=== PATIENT | female | born 1975 | race Caucasian/White ===

== ENCOUNTER 2019-11-06 02:10 | Inpatient (IN) | payer OTHER ==
[2019-11-06] MEDS ORDERED: AMPICILLIN SODIUM 2 GM VIAL ONE (03:37)
[2019-11-06] MEDS ORDERED: AMPICILLIN - 2 GM in SODIUM CHLORIDE 100 ML IVPB ONE (03:43)
[2019-11-06] MEDS ORDERED: DEXTROSE 5%-LACTATED RINGERS 1,000 ML IV SCH (03:45)
--- NOTE | 2019-11-06 03:49 | HP ---
Past Medical History - Primary Care Physician PCP:: Ricardo Radford - Admission Chief Complaint: 43 yo EDC 11/07/2019 EGA 39.6 wks presents to c/o leaking AF and UC. H/O x 3 and c/s x 1 for arrest dilatation, failed induction. Pt desires History of Present Illness: 43 yo EDC 11/07/2019 EGA 39.6 wks presents to c/o leaking AF and UC. H/O x 3 and c/s x 1 for arrest dilatation, failed induction Pt desires AMA - genetic consultation declined History Source: Patient Limitations to Obtaining History: No Limitations - Past Medical History ...: 6 ...Para: 4 ...Induced : 1 ...LMP: 02/01/19 ... Weeks Gestation by Dates: 39 ...EDC by Dates: 11/07/19 ...EDC by Sono: 11/07/19 - Past Surgical History Past Surgical History: Yes: Hx Myomectomy: No Hx Transabdominal Cerclage: No - Smoking History Smoking history: Never smoked Have you smoked in the past 12 months: No - Alcohol/Substance Use Hx Alcohol Use: No History of Substance Use: reports: None - Social History Usual Living Arrangement: Yes: With Spouse, With Significant Other Do you think of yourself as: Straight/Heterosexual History of Recent Travel: No Home Medications - Allergies Allergies/Adverse Reactions: Allergies Allergy/AdvReac Type Severity Reaction Status Date / Time No Known Allergies Allergy Verified 11/06/19 03:28 Family Medical History Family History: Unremarkable Review of Systems - Review of Systems Constitutional: reports: No Symptoms Eyes: reports: No Symptoms HENT: reports: No Symptoms Neck: reports: No Symptoms Cardiovascular: reports: No Symptoms Respiratory: reports: No Symptoms Gastrointestinal: reports: No Symptoms Genitourinary: reports: Pain Breasts: reports: No Symptoms Reported Musculoskeletal: reports: No Symptoms Integumentary: reports: No Symptoms Neurological: reports: No Symptoms Endocrine: reports: No Symptoms Hematology/Lymphatic: reports: No Symptoms Psychiatric: reports: No Symptoms Physical Exam - Maternity Constitutional: Yes: Well Nourished, No Distress Eyes: Yes: WNL HENT: Yes: WNL Neck: Yes: WNL Cardiovascular: Yes: WNL Breast(s): Yes: WNL - Abdominal Exam/OB Fundal Height: 40 Number of Fetuses: Single Presentation: Vertex Contractions: Yes Regularity: Regular Intensity: Mild Monitor Mode: External Heart Rate Location: [facility] Category: I Accelerations: Uniform Decelerations: None - Vaginal Exam/OB Vaginal Bleeding: No Dilatation (cm): 4 Effacement (%): 100 Amniotic Membrane Status: Bulging Nitrazine Test: Negative Presentation: Vertex/Position Station: -2 - Physical Exam Musculoskeletal: Yes: WNL Extremities: Yes: WNL Edema: No Integumentary: Yes: WNL Deep Tendon Reflex Grade: Normal +2 ...Motor Strength: WNL Psychiatric: Yes: WNL Hemorrhage Risk Assessment - Risk Factors Medium Risk Factors: Yes: Prior , uterine surgery,or multiple laparotomies Risk Score: 1 Risk Level: Medium Risk Problem List - Problems (1) AMA (advanced maternal age) multigravida 35+ Code(s): O09.529 - SUPERVISION OF ELDERLY MULTIGRAVIDA, UNSPECIFIED TRIMESTER (2) Previous delivery, antepartum Code(s): O34.219 - MATERNAL CARE FOR UNSP TYPE SCAR FROM PREVIOUS DEL (3) 39 weeks gestation of Code(s): Z3A.39 - 39 WEEKS GESTATION OF (4) GBS carrier Code(s): Z22.330 - CARRIER OF GROUP B STREPTOCOCCUS (5) PPD positive Code(s): R76.11 - NONSPECIFIC REACTION TO SKIN TEST W/O ACTIVE TUBERCULOSIS Assessment/Plan Admit to LD Discussed at length /RENEE - risks, benefits, alternatives of vs cs discussed with pt and , pt aware and verbalized understanding. Consent form signed Antibiotic - ampicillin GBS carrier
[2019-11-06 04:04] LABS: BASO % 0.8 % (0-2.0); EOS % 1.2 % (0-4.5); HEMATOCRIT 37.1 % (32.4-45.2); HEMOGLOBIN 12.6 GM/dL (10.7-15.3); LYMPH % 16.2 % (8-40); MCH 31.3 pg (25.7-33.7); MCHC 33.9 g/dl (32.0-36.0); MEAN CELL VOLUME 92.5 fl (80-96); MEAN PLT VOLUME 9.1 fl (7.5-11.1); MONO % 6.1 % (3.8-10.2); NEUT % 75.7 % (42.8-82.8); PLATELET COUNT 296 K/MM3 (134-434); RBC 4.01 M/mm3 (3.60-5.2); RDW 14.1 % (11.6-15.6); WHITE BLOOD COUNT 14.7 K/mm3 (4.0-10.0)
[2019-11-06 04:16] LABS: INR 0.87 (0.83-1.09); PROTHROMBIN TIME (PATIENT) 10.3 SEC (9.7-13.0)
[2019-11-06 04:19] LABS: ACTIVATED PTT 28.3 SECONDS (25.2-36.5)
[2019-11-06 04:27] LABS: BLOOD UREA NITROGEN 9.9 mg/dL (7-18); CALCIUM 8.8 mg/dL (8.5-10.1); CREATININE 0.6 mg/dL (0.55-1.3); POTASSIUM 4.8 mmol/L (3.5-5.1)
[2019-11-06 04:55] VITALS: BMI 33.7
--- NOTE | 2019-11-06 06:46 | PN ---
Progress Note (short form) - Note Progress Note: pt c/o painful UC VSS afebrile VE leaking mec stained fluid 6-7 cm, 100%, -2 vtx, IFM applied due to LOC Baseline 130 bpm, reactive cat 1, no decel TOCO UC q 3 min A/P Close observation Problem List - Problems (1) AMA (advanced maternal age) multigravida 35+ Code(s): O09.529 - SUPERVISION OF ELDERLY MULTIGRAVIDA, UNSPECIFIED TRIMESTER (2) Previous delivery, antepartum Code(s): O34.219 - MATERNAL CARE FOR UNSP TYPE SCAR FROM PREVIOUS DEL (3) 39 weeks gestation of Code(s): Z3A.39 - 39 WEEKS GESTATION OF (4) GBS carrier Code(s): Z22.330 - CARRIER OF GROUP B STREPTOCOCCUS (5) PPD positive Code(s): R76.11 - NONSPECIFIC REACTION TO SKIN TEST W/O ACTIVE TUBERCULOSIS
[2019-11-06] MEDS ORDERED: OXYTOCIN 30 UNITS in 0.9% NS 30 UNIT/500 ML INFUS.BAG IVPB ONE (07:21)
[2019-11-06] MEDS ORDERED: AMPICILLIN SODIUM 1 GM VIAL ONE (07:21)
[2019-11-06] MEDS ORDERED: SODIUM CHLORIDE 100 ML IVPB ONE (07:22)
[2019-11-06] MEDS: AMPICILLIN - 1 GM in SODIUM CHLORIDE 100 ML IVPB SCH ×3 (07:34→17:09)
[2019-11-06] MEDS ORDERED: OXYTOCIN 30 UNITS in 0.9% NS 30 UNIT/500 ML INFUS.BAG IVPB SCH (08:00)
[2019-11-06] MEDS ORDERED: diphenhydrAMINE HCL 25 MG CAPSULE (FP) PO ONE ×2 (09:21)
--- NOTE | 2019-11-06 10:55 | PN ---
Progress Note (short form) - Note Progress Note: Patient undergoing TOLAC Last examined at 0845 AM by previous attending personnel analyst and noted to be 5 cm with edematous cervix. Patient examined by me at 1045 AM and no cervical change, VE 5/70/-3, no membranes, thin meconium noted Patient and counseled on repeat CD. All risks/benefits/alternatives of continuing TOLAC vs CD discussed and patient desires to proceed with CD. agrees. All questions answered. Informed consent obtained. To OR when ready.
[2019-11-06] MEDS ORDERED: CITRIC ACID/SODIUM CITRATE 30 ML UNIT-DOSE CUP PO ONE (11:15)
[2019-11-06] MEDS ORDERED: AZITHROMYCIN IVPB 500 MG in DEXTROSE 5%-WATER - 250 ML IVPB ONE (11:15)
[2019-11-06] MEDS ORDERED: OXYTOCIN 10 UNITS/ML VIAL ONE (11:16)
[2019-11-06] MEDS ORDERED: OXYTOCIN 20 UNITS in 0.9% NS 40 UNIT/2,000 ML INFUS.BAG IV ONE (11:17)
[2019-11-06] MEDS ORDERED: ceFAZolin SODIUM 1 GM VIAL ONE (11:19)
[2019-11-06] MEDS ORDERED: DEXAMETHASONE SOD PHOSPHATE 4 MG/1 ML VIAL ONE (11:19)
[2019-11-06] MEDS ORDERED: morphine SULFATE/PF 0.5 MG/ML (2cc Syringe - QUVA) ONE (11:19)
[2019-11-06] MEDS ORDERED: KETOROLAC TROMETHAMINE 30 MG/1 ML VIAL ONE (12:09)
[2019-11-06] MEDS ORDERED: ONDANSETRON 4 MG/2 ML VIAL IVPUSH PRN (12:47)
[2019-11-06] MEDS ORDERED: ACETAMINOPHEN 1000 MG/100 ML VIAL (NON FORMULARY) IVPB PRN (12:48)
[2019-11-06] MEDS ORDERED: IBUPROFEN 800 MG/8 ML IJ IVPB PRN (12:49)
[2019-11-06] MEDS ORDERED: METHYLERGONOVINE MALEATE 0.2 MG/1 ML AMP IM PRN (12:51)
[2019-11-06] MEDS ORDERED: oxyCODONE HCL 5 MG TABLET PO PRN (12:51)
[2019-11-06] MEDS ORDERED: SENNOSIDES/DOCUSATE COMBO (SENNA PLUS) TABLET (UD) PO PRN (12:51)
--- NOTE | 2019-11-06 12:57 | OP ---
Operative Note - Note: Operative Date: 11/06/19 Pre-Operative Diagnosis: previous C/S x1, undergoing TOLAC, arrest of dilation Operation: repeat C/S x2 Findings: moderate intraabdominal adhesions fetus in cephalic presentation, direct OP position, delivered atraumatically with score 9/9 3 cm extension of uterine incision on left side normal bilateral fallopian tubes and ovaries Post-Operative Diagnosis: Same as Pre-op Surgeon: Alison Rinaldi Deputy Chief Sheriff: Junie Gibbons Anesthesiologist/CLOCKMAKER APPRENTICE: Nohemi Castillo Anesthesia: Spinal Estimated Blood Loss (mls): 800 Operative Report Dictated: No
--- NOTE | 2019-11-06 19:43 | OP ---
DATE OF OPERATION: 11/06/2019 PREOPERATIVE DIAGNOSIS: Previous section x1, undergoing TOLAC, arrest of dilation. OPERATION: Repeat section x2. FINDINGS: Moderate intraabdominal adhesions, fetus in cephalic presentation, direct OP position, delivered atraumatically with score of 9 and 9. A 3-cm extension of the uterine incision on the left side. Normal bilateral fallopian tubes and ovaries. POSTOPERATIVE DIAGNOSIS: Previous section x1, undergoing TOLAC, arrest of dilation. SURGEON: Alison Rinaldi MD. PROCUREMENT MANAGER: Junie Gibbons MD. ANESTHESIOLOGIST: Nohemi Castillo MD. ANESTHESIA: Spinal. ESTIMATED BLOOD LOSS: 800 mL. COMPLICATIONS: None. PROCEDURE: The patient was taken to the operating room where spinal anesthesia was administered without difficulty. She was prepped and draped in dorsal supine position with leftward tilt. A Pfannenstiel skin incision was made over her previous scar. The incision was carried down to the level of the fascia with the Bovie. The fascia was incised and extended laterally. The fascia was dissected off the underlying rectus and pyrimidalis muscles. The rectus muscle was elevated with Allis clamps in the midline and sharply. The peritoneum was identified and entered bluntly. The entry was extended inferiorly and superiorly to the bladder reflection with good visualization of the bladder. There were moderate intraabdominal adhesions which were lysed. The bladder blade was placed to keep the bladder out of the operative field. A bladder flap was developed. A low transverse uterine incision was made. Then the incision was extended bluntly. The fetus was in cephalic presentation in direct OP position. The head was grasped and was elevated to the level of the incision and with gentle fundal pressure, the was delivered without difficulty. The mouth and nose were suctioned with the bulb. The cord was clamped and cut, and the was handed to the awaiting special events fundraiser. The placenta was delivered manually complete and intact. The uterus was delivered out of the abdominal cavity. The inside of the uterus was wiped clean with laparotomy sponges. There was a 3-cm extension on the left side of the uterine incision that was noted and repaired with 0 Vicryl in running, locked fashion, and good hemostasis was noted. The remaining part of the uterine incision was closed in running, locked fashion with 0 Vicryl. The bilateral fallopian tubes and ovaries were noted to be normal. The inside of the abdomen was irrigated and the uterus and fallopian tubes and ovaries were returned to the abdominal cavity . The uterine incision was reinspected, and good hemostasis was noted. The rectus muscles were reapproximated using [id number] sutures with 0 Vicryl. The fascia was closed in running fashion using 0 Vicryl. The subcutaneous fatty tissue was reapproximated using 2-0 plain catgut, and the skin was closed in subcuticular fashion using 3-0 Vicryl. The patient tolerated the procedure well, all counts were correct x2, and the patient was transferred to the recovery room in stable condition. MD PRESTON CASTILLO/[id number] MTDD
[2019-11-07 07:58] LABS: BASO % 0.4 % (0-2.0); EOS % 1.1 % (0-4.5); HEMATOCRIT 32.3 % (32.4-45.2); HEMOGLOBIN 10.7 GM/dL (10.7-15.3); LYMPH % 18.8 % (8-40); MCH 30.7 pg (25.7-33.7); MCHC 33.1 g/dl (32.0-36.0); MEAN PLT VOLUME 8.5 fl (7.5-11.1); MONO % 7.4 % (3.8-10.2); NEUT % 72.3 % (42.8-82.8); PLATELET COUNT 270 K/MM3 (134-434); RBC 3.47 M/mm3 (3.60-5.2); RDW 14.6 % (11.6-15.6)
--- NOTE | 2019-11-07 08:31 | PN ---
Progress Note (short form) - Note Progress Note: Anesthesia post op note POD#1. S/P repeat under spinal with duramorph. VSS. Ambulationg. No apparent post anesthesia complications.
[2019-11-07] MEDS ORDERED: ACETAMINOPHEN 325 MG TABLET (FP) ONE (08:42)
[2019-11-07] MEDS: IBUPROFEN 600 MG TABLET (FP) PO PRN ×2 (08:46→18:06)
[2019-11-07] MEDS: SIMETHICONE 80 MG TAB.CHEW (FP) PO PRN ×2 (08:47→18:06)
--- NOTE | 2019-11-07 09:18 | PN ---
Post Progress Note Type of Delivery: Primary C/S Vital Signs: Vital Signs Temperature 98 F 11/07/19 06:00 Pulse Rate 73 11/07/19 06:00 Respiratory Rate 18 11/07/19 06:00 Blood Pressure 109/59 L 11/07/19 06:00 O2 Sat by Pulse Oximetry (%) 96 11/07/19 06:00 Breast Exam: Yes: Soft Uterus: Yes: Fundus Firm Incision: Yes: Ronny intact Abdomen/GI: Yes: Abdomen soft Lochia, amount: Small Extremities: Yes: Calves non-tender Perineum: Yes: Intact Activity: Ambulating - Labs Labs: CBC WBC 15.0 K/mm3 (4.0-10.0) H 11/07/19 07:19 RBC 3.47 M/mm3 (3.60-5.2) L 11/07/19 07:19 Hgb 10.7 GM/dL (10.7-15.3) 11/07/19 07:19 Hct 32.3 % (32.4-45.2) L 11/07/19 07:19 MCV 93.0 fl (80-96) 11/07/19 07:19 MCH 30.7 pg (25.7-33.7) 11/07/19 07:19 MCHC 33.1 g/dl (32.0-36.0) 11/07/19 07:19 RDW 14.6 % (11.6-15.6) 11/07/19 07:19 Plt Count 270 K/MM3 (134-434) 11/07/19 07:19 MPV 8.5 fl (7.5-11.1) 11/07/19 07:19 Absolute Neuts (auto) 10.8 K/mm3 (1.5-8.0) H 11/07/19 07:19 Neutrophils % 72.3 % (42.8-82.8) 11/07/19 07:19 Lymphocytes % 18.8 % (8-40) 11/07/19 07:19 Monocytes % 7.4 % (3.8-10.2) 11/07/19 07:19 Eosinophils % 1.1 % (0-4.5) 11/07/19 07:19 Basophils % 0.4 % (0-2.0) 11/07/19 07:19 Nucleated RBC % 0 % (0-0) 11/07/19 07:19
[2019-11-07] MEDS: PRENATAL VITAMINS W/ FOLIC ACID TABLET (FP) PO SCH (10:10)
[2019-11-07] MEDS ORDERED: BISACODYL 10 MG SUPP.RECT RC PRN (12:51)
[2019-11-07] MEDS: ACETAMINOPHEN 325 MG TABLET (FP) PO PRN (18:07)
[2019-11-08] MEDS: IBUPROFEN 600 MG TABLET (FP) PO PRN ×3 (02:16→18:16)
[2019-11-08] MEDS: SIMETHICONE 80 MG TAB.CHEW (FP) PO PRN ×3 (02:16→18:16)
[2019-11-08] MEDS: ACETAMINOPHEN 325 MG TABLET (FP) PO PRN ×3 (02:16→18:15)
[2019-11-08] MEDS: PRENATAL VITAMINS W/ FOLIC ACID TABLET (FP) PO SCH (09:16)
--- NOTE | 2019-11-08 14:06 | PN ---
Post Progress Note Post Day: 2 Type of Delivery: Primary C/S Vital Signs: Vital Signs Temperature 98.0 F 11/08/19 10:00 Pulse Rate 76 11/08/19 10:00 Respiratory Rate 20 11/08/19 10:00 Blood Pressure 111/80 11/08/19 10:00 O2 Sat by Pulse Oximetry (%) 96 11/07/19 06:00 Breast Exam: Yes: Soft Uterus: Yes: Fundus Firm, Fundus below umbilicus, Non-tender Incision: Yes: Sutures intact Abdomen/GI: Yes: Abdomen soft, Tolerating PO Lochia: Yes: Rubra Lochia, amount: Small Extremities: Yes: Calves non-tender Activity: Ambulating - Labs Labs: CBC WBC 15.0 K/mm3 (4.0-10.0) H 11/07/19 07:19 RBC 3.47 M/mm3 (3.60-5.2) L 11/07/19 07:19 Hgb 10.7 GM/dL (10.7-15.3) 11/07/19 07:19 Hct 32.3 % (32.4-45.2) L 11/07/19 07:19 MCV 93.0 fl (80-96) 11/07/19 07:19 MCH 30.7 pg (25.7-33.7) 11/07/19 07:19 MCHC 33.1 g/dl (32.0-36.0) 11/07/19 07:19 RDW 14.6 % (11.6-15.6) 11/07/19 07:19 Plt Count 270 K/MM3 (134-434) 11/07/19 07:19 MPV 8.5 fl (7.5-11.1) 11/07/19 07:19 Absolute Neuts (auto) 10.8 K/mm3 (1.5-8.0) H 11/07/19 07:19 Neutrophils % 72.3 % (42.8-82.8) 11/07/19 07:19 Lymphocytes % 18.8 % (8-40) 11/07/19 07:19 Monocytes % 7.4 % (3.8-10.2) 11/07/19 07:19 Eosinophils % 1.1 % (0-4.5) 11/07/19 07:19 Basophils % 0.4 % (0-2.0) 11/07/19 07:19 Nucleated RBC % 0 % (0-0) 11/07/19 07:19 Assessment/Plan S/P delivery, pod # 2, with mild right facial palsy Fot neurological consult Continue management
--- NOTE | 2019-11-08 20:09 | CON.NEURO ---
Consult - Past Surgical History Past Surgical History: Yes: - Alcohol/Substance Use Hx Alcohol Use: No History of Substance Use: reports: None - Smoking History Smoking history: Never smoked Have you smoked in the past 12 months: No - Social History History of Recent Travel: No Home Medications - Allergies Allergies/Adverse Reactions: Allergies Allergy/AdvReac Type Severity Reaction Status Date / Time No Known Allergies Allergy Verified 11/06/19 03:28 - Home Medications Home Medications: Ambulatory Orders Pnv No.95/Ferrous Fum/Folic AC [ Vitamin Tablet] 1 each PO DAILY 11/06/19 Physical Exam-Neuro Vital Signs: Vital Signs Temperature 98.0 F 11/08/19 10:00 Pulse Rate 76 11/08/19 10:00 Respiratory Rate 20 11/08/19 10:00 Blood Pressure 111/80 11/08/19 10:00 O2 Sat by Pulse Oximetry (%) 96 11/07/19 06:00 Labs: CBC, BMP 11/07/19 07:19 11/06/19 03:38 INR, PTT INR 0.87 (0.83-1.09) 11/06/19 03:38 Assessment/Plan cc Complaining of bilateral chin numbness HPI 43 yo EDC 11/07/2019 EGA 39.6 wks presents to LD c/o leaking AF and UC. H/O x 3 and c/s x 1 for arrest dilatation, failed induction. Patient has c section. Patient has no hisory of headahce or migraine in past. There is no migraine, Patient denies any no other focal neurological symptoms. There is no fever P Allergies/Adverse Reactions: Allergies Allergy/AdvReac Type Severity Reaction Status Date / Time No Known Allergies Allergy Verified 11/06/19 03:28 Family Medical History Family History: Unremarkable ROS,FH,SH REVIEWED IN CHART NEUROLOGICAL EXAMINATION Alert oriented x 3, eomi, pupils reactive no face asymmetry moving all ext there is diminished senstaion in partially both v3 bilaterally in lower jaw reflex are normal no brain imaging Assessment Bilateral v3 dimnished sensation in lower jaw or chin area, rest of exam is normal. non specific vs, any brain lesion, ( MS, Thrombosis or stroke or mass lesion) Plan: suggest to do mri of brain without contrast - if mri of brain is normal , then no further work up - follow up outpatient Thanking you so much Gerard Jang MD
[2019-11-09] MEDS: IBUPROFEN 600 MG TABLET (FP) PO PRN (06:14)
[2019-11-09] MEDS: ACETAMINOPHEN 325 MG TABLET (FP) PO PRN (06:14)
[2019-11-09] MEDS: SIMETHICONE 80 MG TAB.CHEW (FP) PO PRN (06:14)
[2019-11-09 07:48] LABS: BASO % 0.5 % (0-2.0); EOS % 4.5 % (0-4.5); HEMATOCRIT 30.8 % (32.4-45.2); HEMOGLOBIN 10.2 GM/dL (10.7-15.3); LYMPH % 29.5 % (8-40); MCH 30.9 pg (25.7-33.7); MCHC 33.3 g/dl (32.0-36.0); NEUT % 58.5 % (42.8-82.8); PLATELET COUNT 300 K/MM3 (134-434); RBC 3.31 M/mm3 (3.60-5.2)
[2019-11-09 09:39] VITALS: BP 121/76; PULSE 69; TEMP 98.3
--- NOTE | 2019-11-09 10:26 | DS ---
Physical Exam-SHEET METAL FABRICATOR Vital Signs: Vital Signs Temperature 98.3 F 11/09/19 09:00 Pulse Rate 69 11/09/19 09:00 Respiratory Rate 20 11/09/19 09:00 Blood Pressure 121/76 11/09/19 09:00 O2 Sat by Pulse Oximetry (%) 96 11/07/19 06:00 Constitutional: Yes: Well Nourished Eyes: Yes: Other (byrne s palsy under neurological w/u) HENT: Yes: WNL Neck: Yes: WNL Cardiovascular: Yes: WNL Respiratory: Yes: WNL Uterus: Yes: Enlarged ....Post : Yes: Uterus non-tender, Slight lochia rubra Edema: No Wound/Incision: Yes: Clean/Dry Neurological: Yes: Facial Droop, Other (byrne s palsy) Labs: CBC, BMP 11/09/19 07:20 11/06/19 03:38 Delivery - Delivery Type of Anesthesia: Spinal Episiotomy/Laceration: None EBL (cc): 800 Delivery, Single - Stages of Labor Date 1st Stage Initiatied: 11/05/19 Time 1st Stage Initiated: 22:00 Date 2nd Stage Initiated: 11/06/19 Time 2nd Stage Initiated: 05:00 Date of Delivery: 11/06/19 Time of Delivery: 12:06 Time Placenta Delivered: 12:08 - Condition of Rehabilitation Program Coordinator/Crystal Report Developer Present: Long Neck: Cesilia Nash Gender: Male Weight: 3.6 kg Position: OP Total Hours ROM (Hrs/Mins): 5 hrs 37 mins - 1 Minute Total Score: 9 5 Minutes Total Score: 9 - Feeding Plan Initial Plan: Elected not to breastfeed exclusively throughout hospitalization Remarks - Remarks Remarks: s/p c section; byrne s palsy awaiting MRI of brain as per neuro w/u and if negative will d/c home for outpatient f/u if MRI + will f/u accordingly Discharge Summary Reason For Visit: LABOR ADMIT Current Active Problems 39 weeks gestation of (Acute) AMA (advanced maternal age) multigravida 35+ (Acute) GBS carrier (Acute) PPD positive (Acute) Previous delivery, antepartum (Acute) Procedures: Principal: c section Hospital Course: bells palsy Plan of Treatment: home; neuro w/u in progress Condition: Good - Instructions Diet, Activity, Other Instructions: regular Referrals: Ricardo Radford MD [Family Provider] - - Home Medications Comprehensive Discharge Medication List: Ambulatory Orders Pnv No.95/Ferrous Fum/Folic AC [ Vitamin Tablet] 1 each PO DAILY 11/06/19 Prescription Drug Monitoring Program (I-STOP) results: I-STOP reviewed and no issues identified
[2019-11-09] MEDS: PRENATAL VITAMINS W/ FOLIC ACID TABLET (FP) PO SCH (11:04)
--- NOTE | 2019-11-09 18:25 | PN ---
Progress Note (short form) - Note Progress Note: HPI 43 yo EDC 11/07/2019 EGA 39.6 wks presents to LD c/o leaking AF and UC. H/O x 3 and c/s x 1 for arrest dilatation, failed induction. Patient has c section. Patient has no hisory of headahce or migraine in past. There is no migraine, Patient denies any no other focal neurological symptoms. There is no fever , numbness is slightly better, mri of brain showed incidental findings of pituitary adenoma? NEUROLOGICAL EXAMINATION Alert oriented x 3, eomi, pupils reactive no face asymmetry moving all ext there is diminished senstaion in partially both v3 bilaterally in lower jaw reflex are normal mri of brain showed there is small ? pituitary lesion would do mri ofbrain with contrast outpatient Assessment Bilateral v3 dimnished sensation in lower jaw or chin area, rest of exam is normal. non specific vs, any brain lesion, ( MS, Thrombosis or stroke or mass lesion) Plan: mri with contrast outpatient and endo and optho consult - reassured, no objective findings identified. Thanking you so much Gerard Jang MD
[2019-11-10 12:06] LABS: POC NITRAZINE NEG
--- NOTE | 2019-11-11 10:38 | PATH ---
Surgical Pathology Report Patient Name: DARLENE GALVIN [facility]. Rec. #: [id number] /Age/Gender: 1975 (Age: 43) / F Account: [id number] Location: [facility] OBS/TALENT SOURCING SPECIALIST Taken: 11/06/2019 Received: 11/09/2019 Reported: 11/11/2019 Physicians: Ashley Hayden M.D. Specimen(s) Received PLACENTA Clinical History 39.6 week, repeat Final Diagnosis PLACENTA, : MATURE THIRD TRIMESTER PLACENTA WITH TRIVESSEL UMBILICAL CORD SHOWING MILD ACUTE CHORIOAMNIONITIS AND FUNISITIS. Electronically Signed Kayla Demarco M.D. Gross Description The specimen is received fresh labeled placenta and is a 537 gram, 20.0 x 19.0 x 2.8 cm. placenta with attached membranes and umbilical cord. The attached membranes are yates, translucent with focal opacities and insert marginally. The umbilical cord measures 30 cm. in length and averages 1.2 cm. in diameter. The cord inserts eccentrically, 4 cm. to the nearest margin. No true knots or strictures are identified. Cut surface of the umbilical cord reveals 3 vessels. The surface is salgado-blue with minimal fibrin deposition and appropriate caliber vessels. The maternal surface is red-brown with focal defects. Sectioning reveals red-brown, spongy parenchyma. No lesions are identified. Acds Block 1 Operator sections are submitted in three cassettes as follows: 1- membrane rolls and umbilical cord; 2-3- full thickness sections of placenta. [facility]/09/2019 [facility]2019
== END 2019-11-09 19:30 | disposition home or self-care (01) | DRG 540 ==
LOC: JDEL 02:10 → JLDR 03:13 → J3W 15:18
PROVIDERS: ADMIT Obstetrics & Gynecology; ATTEND Obstetrics & Gynecology
PROC: 10D00Z1 Extraction of Products of Conception, Low, Open Approach (ICD-10-PCS; principal; 2019-11-06)
DX: O34.219 Maternal care for unspecified type scar from previous cesarean delivery (principal); O99.824 Streptococcus B carrier state complicating childbirth; O62.1 Secondary uterine inertia; O90.89 Other complications of the puerperium, not elsewhere classified; G51.0 Bell's palsy; E23.7 Disorder of pituitary gland, unspecified; O09.523 Supervision of elderly multigravida, third trimester; Z3A.39 39 weeks gestation of pregnancy; Z37.0 Single live birth
CPT/HCPCS: 36415; 59025; 70551-TC; 71046-TC-FY; 80048; 83986-QW; 85025; 85610; 85730; 86780; 86850; 86900; 86901; 88307-TC; U0003